=== PATIENT | male | born 1955 | race American Indian/Alaskan Native ===

== ENCOUNTER 2018-08-14 13:24 | Emergency (ER) | payer OTHER ==
--- NOTE | 2018-08-14 13:33 | ED PDOC ---
Arrival/HPI - General Time Seen by Provider: 08/14/18 13:25 Historian: Patient - History of Present Illness Narrative History of Present Illness (Text): 08/14/18 13:31 A 62 year old male presenting tot he emergency department for a work note. Patient is in no acute distress and has no complaints whatsoever. pt states he missed work last week, and his boss is "making him bring in a work note". he states he has not medical complaints, and "i am fine". declines any w/u in er. 08/14/18 13:46 Time/Duration: Other (today) Symptom Onset: Other (work note) Symptom Course: Other (no symptoms) Activities at Onset: Rest Context: Home Past Medical History - Provider Review Nursing Documentation Reviewed: Yes Family/Social History - Physician Review Nursing Documentation Reviewed: Yes Family/Social History: No Known Family HX Allergies/Home Meds Allergies/Adverse Reactions: Allergies No Known Allergies Allergy (Verified 08/14/18 13:31) Home Medications: Home Meds Medication Instructions Recorded Confirmed No Known Home Med 08/14/18 08/14/18 Review of Systems - Physician Review All systems were reviewed & negative as marked: Yes - Review of Systems Constitutional: absent: Fevers, Night Sweats Respiratory: absent: SOB Cardiovascular: absent: Chest Pain Gastrointestinal: absent: Diarrhea, Nausea, Vomiting Genitourinary Male: absent: Urinary Output Changes Musculoskeletal: absent: Back Pain, Neck Pain Neurological: absent: Headache, Dizziness Physical Exam Vital Signs Reviewed: Yes Temperature: Hypothermic Blood Pressure: Hypertensive Pulse: Regular Respiratory Rate: Normal Appearance: Positive for: Well-Appearing, Non-Toxic, Comfortable - Systems Exam Head: Present: Atraumatic, Normocephalic Pupils: Present: PERRL Extroacular Muscles: Present: EOMI Conjunctiva: Present: Normal Mouth: Present: Moist Mucous Membranes Neck: Present: Normal Range of Motion Respiratory/Chest: Present: Clear to Auscultation, Good Air Exchange. No: Respiratory Distress, Accessory Muscle Use Cardiovascular: Present: Regular Rate and Rhythm, Normal S1, S2. No: Murmurs Abdomen: No: Tenderness, Distention, Peritoneal Signs Back: Present: Normal Inspection Upper Extremity: Present: Normal Inspection. No: Cyanosis, Edema Lower Extremity: Present: Normal Inspection. No: Edema Neurological: Present: GCS=15, CN II-XII Intact, Speech Normal Skin: Present: Warm, Dry, Normal Color. No: Rashes Psychiatric: Present: Alert, Oriented x 3, Normal Insight, Normal Concentration Medical Decision Making ED Course and Treatment: 08/14/18 13:34 Impression: 62 year old male presenting to the emergency department for a work note. 08/14/18 13:47 benign exma. refuses any work up iner. states "feels well". only request work note. 08/14/18 13:52 asymptomatic, mild htn, suspect underlying essential htn. extenvive discussion bedside that pt will need pmd f/u and for clearance to return to work, howver will provide note that pt was seen in ER. no acute medical issue. pt verbalizes understanding. adivses will see pmd. - Scribe Statement The provider has reviewed the documentation as recorded by the Scribe Karla Das All medical record entries made by the Scribe were at my direction and personally dictated by me. I have reviewed the chart and agree that the record accurately reflects my personal performance of the history, physical exam, medical decision making, and the department course for this patient. I have also personally directed, reviewed, and agree with the discharge instructions and disposition. Disposition/Present on Arrival - Present on Arrival Any Indicators Present on Arrival: No - Disposition Have Diagnosis and Disposition been Completed?: Yes Diagnosis: Encounter to obtain excuse from work Disposition: HOME/ ROUTINE Disposition Time: 13:30 Patient Problems: Current Active Problems Problem Status Onset Encounter to obtain excuse from work Acute Condition: STABLE Additional Instructions: follow up with your doctor/clinic. you will need pmd clearance. Referrals: PCP,NO [Primary Care Provider] - Follow up with primary [facility] [Outside] - Follow up with primary [facility] [place] [Outside] - Follow up with primary Forms: WORK NOTE
[2018-08-14 13:48] VITALS: BMI 28.1
[2018-08-14 13:49] VITALS: BP 164/82; PULSE 88; RESP 18; TEMP 97.5; O2SAT 99
== END 2018-08-14 13:58 | disposition home or self-care (01) ==
LOC: ED 13:24
DX: Z02.79 Encounter for issue of other medical certificate (principal)

== ENCOUNTER 2018-11-18 12:41 | Emergency (ER) | payer OTHER ==
[2018-11-18 12:42] VITALS: BMI 28.1
--- NOTE | 2018-11-18 13:51 | ED PDOC ---
Arrival/HPI - General Chief Complaint: Lower Extremity Problem/Injury Historian: Patient - History of Present Illness Narrative History of Present Illness (Text): 11/18/18 13:50 62 year old male, with no significant past medical history, [facility] complaining of pain to the right toe past 2 days. Patient states something ran over his toe at work. Patient is able to ambulate without any distress. Patient denies any fever, chills, chest pain, shortness of breath, nausea, vomiting, diarrhea, urinary symptoms, back pain, neck pain, headache, dizziness, or any other complaints. Time/Duration: Other (2 days) Symptom Onset: Sudden Symptom Course: Unchanged Activities at Onset: Light Context: Work Past Medical History - Provider Review Nursing Documentation Reviewed: Yes - Infectious Disease Hx of Infectious Diseases: None - Psychiatric Hx Substance Use: No Family/Social History - Physician Review Nursing Documentation Reviewed: Yes Family/Social History: No Known Family HX Smoking Status: Current Some Days Smoker Hx Alcohol Use: Yes Frequency of alcohol use: Socially Hx Substance Use: No Allergies/Home Meds Allergies/Adverse Reactions: Allergies No Known Allergies Allergy (Verified 11/18/18 12:50) Review of Systems - Physician Review All systems were reviewed & negative as marked: Yes - Review of Systems Constitutional: absent: Fevers, Other (chills) Respiratory: absent: SOB Cardiovascular: absent: Chest Pain Gastrointestinal: absent: Diarrhea, Nausea, Vomiting Genitourinary Male: absent: Dysuria, Frequency, Hematuria Musculoskeletal: Other (right great toe pain). absent: Back Pain, Neck Pain Neurological: absent: Headache, Dizziness Physical Exam Vital Signs Reviewed: Yes Vital Signs Temp Pulse Resp BP Pulse Ox 11/18/18 12:51 98.3 F 90 18 148/92 H 95 Temperature: Afebrile Blood Pressure: Hypertensive Pulse: Regular Respiratory Rate: Normal Appearance: Positive for: Well-Appearing, Non-Toxic, Comfortable Pain Distress: None Mental Status: Positive for: Alert and Oriented X 3 - Systems Exam Head: Present: Atraumatic, Normocephalic Pupils: Present: PERRL Extroacular Muscles: Present: EOMI Conjunctiva: Present: Normal Mouth: Present: Moist Mucous Membranes Neck: Present: Normal Range of Motion Respiratory/Chest: Present: Clear to Auscultation, Good Air Exchange. No: Respiratory Distress, Accessory Muscle Use Cardiovascular: Present: Regular Rate and Rhythm, Normal S1, S2. No: Murmurs Abdomen: No: Tenderness, Distention, Peritoneal Signs Upper Extremity: Present: Normal Inspection. No: Cyanosis, Edema Lower Extremity: Present: Normal Inspection. No: Edema Neurological: Present: GCS=15, Speech Normal Skin: Present: Warm, Dry, Normal Color. No: Rashes Psychiatric: Present: Alert, Oriented x 3, Normal Insight, Normal Concentration Medical Decision Making ED Course and Treatment: 11/18/18 13:51 Impression: 62 year old male presents complaining of pain to the right great toe for the past 2 days. Plan: -- Right foot x-ray -- Reassess and disposition Progress Notes: - RAD Interpretation Radiology Orders: 11/18/18 13:11 FOOT RIGHT GREAT TOE ROUTINE [RAD] Stat - Scribe Statement The provider has reviewed the documentation as recorded by the Scribe Tiny Cazares Provider Scribe Attestation: All medical record entries made by the Scribe were at my direction and personally dictated by me. I have reviewed the chart and agree that the record accurately reflects my personal performance of the history, physical exam, medical decision making, and the department course for this patient. I have also personally directed, reviewed, and agree with the discharge instructions and disposition. Disposition/Present on Arrival - Present on Arrival Any Indicators Present on Arrival: No History of DVT/PE: No History of Uncontrolled Diabetes: No Urinary Catheter: No History of Decub. Ulcer: No History Surgical Site Infection Following: None - Disposition Have Diagnosis and Disposition been Completed?: Yes Diagnosis: Toe sprain Disposition: HOME/ ROUTINE Disposition Time: 15:40 Condition: GOOD Discharge Instructions (ExitCare): Toe Injury (DC) Additional Instructions: [facility] [place], thank you for letting us take care of you today. The emergency medical care you received today was directed at your acute symptoms. If you were prescribed any medication, please fill it and take as directed. It may take several days for your symptoms to resolve. Return to the Emergency Department if your symptoms worsen, do not improve, or if you have any other problems. Please contact your doctor or call one of the physicians/clinics you have been referred to that are listed on the Patient Visit Information form that is included in your discharge packet. Bring any paperwork you were given at discharge with you along with any medications you are taking to your follow up visit. Our treatment cannot replace ongoing medical care by a primary care provider outside of the emergency department. Thank you for allowing the [facility] team to be part of your care today. Follow up with the clinic for outpatient care. Prescriptions: Ibuprofen [Motrin] 600 mg PO Q6 PRN #20 tab PRN Reason: Pain, Moderate (4-7) Referrals: [facility] [Outside] - Follow up with primary Sindy Zimmer MD [Medical Doctor] - Follow up with primary Forms: [employer] ([place]), WORK NOTE
--- NOTE | 2018-11-18 14:50 | RAD ---
Date of service: 11/18/2018 PROCEDURE: Right Foot Radiographs. HISTORY: recent trauma - r/o fx COMPARISON: None. TECHNIQUE: 3 views obtained. FINDINGS: BONES: Normal. No fracture. JOINTS: Normal. SOFT TISSUES: Normal. OTHER FINDINGS: None. IMPRESSION: Negative study
[2018-11-18 15:42] VITALS: BP 138/79; PULSE 75; RESP 17; TEMP 97.8; O2SAT 99
== END 2018-11-18 15:05 | disposition home or self-care (01) ==
LOC: ED 12:41
DX: S93.501A Unspecified sprain of right great toe, initial encounter (principal); W22.8XXA Striking against or struck by other objects, initial encounter; Y92.89 Other specified places as the place of occurrence of the external cause; Y99.0 Civilian activity done for income or pay